=== PATIENT | female | born 1975 | race Caucasian/White ===

== ENCOUNTER 2016-09-14 06:40 | Emergency (ER) | payer BC ==
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
--- NOTE | 2016-09-14 08:41 | ED ORDER SUMMARY ---
..... Patient: DAVE MARTINES OrderSheet [facility] VisitID: [id number] [place] [address] 40y, F Registration Date/Time: 09/14/2016 ORDER SHEET Weight: 68.0 kg (stated) Allergies: No Known Drug Allergy GENERAL ORDERS: CBC w Diff Urgent (06:57 09/14/2016 Julio Cesar DRUMMOND) (Ack 7:01 AMcCarrillooid ER Tech1) (8:07 JSimbeck R.N.) CMP Urgent (06:57 09/14/2016 Julio Cesar DRUMMOND) (Ack 7:01 Matt ER TechHumberto) (8:07 YASMANIimbeck R.N.) UA-Culture if indicated Urgent (06:57 09/14/2016 Julio Cesar DRUMMOND) (Ack 7:01 Matt ER Booker) Urine Urgent (06:57 09/14/2016 Julio Cesar DRUMMOND) (Ack 7:01 Matt ER Booker) (7:11 Julio Cesar DRUMMOND) (Cancelled: Other7:11 Julio Cesar DRUMMOND) Amylase Urgent (06:57 09/14/2016 Julio Cesar DRUMMOND) (Ack 7:01 AMcCarrillooid ER Tech1) (8:07 JSimbeck R.N.) Lipase Urgent (06:57 09/14/2016 Julio Cesar DRUMMOND) (Ack 7:01 Matt ER TechHumberto) (8:07 Esthelaeck R.N.) Ethyl Alcohol Urgent (06:57 09/14/2016 Julio Cesar DRUMMOND) (Ack 7:01 Matt ER Tech1) Urine Drug Screen Urgent (06:57 09/14/2016 Julio Cesar DRUMMOND) (Ack 7:01 Racqueloid ER TechHumberto) CT Head wo Cont Urgent (07:00 09/14/2016 Julio Cesar DRUMMOND) (Ack 7:02 AMcCarrillooid ER Tech1) (8:08 JSimbeck R.N.) CT Cervical Spine wo Cont Urgent (07:01 09/14/2016 Julio Cesar DRUMMOND) (Ack 7:02 AMcQuoid ER Tech1) (8:08 JSimbeck R.N.) CT Thorax/Abd/Pelvis w Cont (No) (see report) Urgent (07:01 09/14/2016 Julio Cesar DRUMMOND) (Ack 7:02 AMcQuoid ER Tech1) (8:08 Philip Au) Serum Qualitative Urgent (07:11 09/14/2016 Julio Cesar DRUMMOND) (8:07 Philip Au) Shoulder 2V or more Left Urgent (08:14 09/14/2016 Dilma verbal order read back to Julio Cesar DRUMMOND) (Ack 8:20 Dilma) Verbal order read back and verified MEDICATION ORDERS: IV FLUIDS: IV NS : initial bolus 500 mL (1000 mL/hr), then 125 mL/hr for 4h (NOW); Urgent (06:56 09/14/2016 Julio Cesar DRUMMOND) (Ack 7:00 HSoule) (7:05 HSoule) Dilaudid IV 0.5 mg (HIGH ALERT MEDICATION, NOW) (06:56 09/14/2016 Julio Cesar DRUMMOND) (Ack 7:00 HSoule) (7:06 HSoule) Zofran IV 4 mg (NOW) (06:57 09/14/2016 Julio Cesar DRUMMOND) (Ack 7:00 HSoule) (7:06 HSoule) ORDER SHEET NOTES: [Electronically signed by Minor Rangel R.N. (09:24 09/14/2016)] [Electronically signed by Ozzie Rios MD (00:35 09/18/2016)] [Electronically locked/signed by Minor Rangel R.N. (09:24 09/14/2016)]
--- NOTE | 2016-09-14 08:41 | ED ORDER SUMMARY ---
..... Patient: DAVE MARTINES OrderSheet [facility] VisitID: [id number] [place] [address] 40y, F Registration Date/Time: 09/14/2016 ORDER SHEET Weight: 68.0 kg (stated) Allergies: No Known Drug Allergy GENERAL ORDERS: CBC w Diff Urgent (06:57 09/14/2016 Julio Cesar DRUMMOND) (Ack 7:01 AMcCarrillooid ER Tech1) (8:07 JSimbeck R.N.) CMP Urgent (06:57 09/14/2016 Julio Cesar DRUMMOND) (Ack 7:01 Matt ER TechHumberto) (8:07 YASMANIimbeck R.N.) UA-Culture if indicated Urgent (06:57 09/14/2016 Julio Cesar DRUMMOND) (Ack 7:01 Matt ER Booker) Urine Urgent (06:57 09/14/2016 Julio Cesar DRUMMOND) (Ack 7:01 Matt ER Booker) (7:11 Julio Cesar DRUMMOND) (Cancelled: Other7:11 Julio Cesar DRUMMOND) Amylase Urgent (06:57 09/14/2016 Julio Cesar DRUMMOND) (Ack 7:01 AMcCarrillooid ER Tech1) (8:07 JSimbeck R.N.) Lipase Urgent (06:57 09/14/2016 Julio Cesar DRUMMOND) (Ack 7:01 Matt ER TechHumberto) (8:07 Esthelaeck R.N.) Ethyl Alcohol Urgent (06:57 09/14/2016 Julio Cesar DRUMMOND) (Ack 7:01 Matt ER Tech1) Urine Drug Screen Urgent (06:57 09/14/2016 Julio Cesar DRUMMOND) (Ack 7:01 Racqueloid ER TechHumberto) CT Head wo Cont Urgent (07:00 09/14/2016 Julio Cesar DRUMMOND) (Ack 7:02 AMcCarrillooid ER Tech1) (8:08 JSimbeck R.N.) CT Cervical Spine wo Cont Urgent (07:01 09/14/2016 Julio Cesar DRUMMOND) (Ack 7:02 AMcQuoid ER Tech1) (8:08 JSimbeck R.N.) CT Thorax/Abd/Pelvis w Cont (No) (see report) Urgent (07:01 09/14/2016 Julio Cesar DRUMMOND) (Ack 7:02 AMcQuoid ER Tech1) (8:08 Philip Au) Serum Qualitative Urgent (07:11 09/14/2016 Julio Cesar DRUMMOND) (8:07 Philip Au) Shoulder 2V or more Left Urgent (08:14 09/14/2016 Dilma verbal order read back to Julio Cesar DRUMMOND) (Ack 8:20 Dilma) Verbal order read back and verified MEDICATION ORDERS: IV FLUIDS: IV NS : initial bolus 500 mL (1000 mL/hr), then 125 mL/hr for 4h (NOW); Urgent (06:56 09/14/2016 Julio Cesar DRUMMOND) (Ack 7:00 HSoule) (7:05 HSoule) Dilaudid IV 0.5 mg (HIGH ALERT MEDICATION, NOW) (06:56 09/14/2016 Julio Cesar DRUMMOND) (Ack 7:00 HSoule) (7:06 HSoule) Zofran IV 4 mg (NOW) (06:57 09/14/2016 Julio Cesar DRUMMOND) (Ack 7:00 HSoule) (7:06 HSoule) ORDER SHEET NOTES: [Electronically signed by Minor Rangel R.N. (09:24 09/14/2016)] [Electronically signed by Ozzie Rios MD (00:35 09/18/2016)] [Electronically locked/signed by Minor Rangel R.N. (09:24 09/14/2016)]
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
--- NOTE | 2016-09-18 00:36 | ED MAR SUMMARY ---
..... Medication Administration Record [facility] [address] [place] [address] Patient: DAVE MARTINES Visit ID: [id number] 40y, F Weight: 68.0 kg Height/Length: 60 in BMI: 29.3 ALLERGIES: No Known Drug Allergy Start 07:09/14/2016 Audra Hedrick,, Stop 09:00 09/14/2016 Minor Rangel R.N. Medication Administered: IV NS (SALINE), Dose: IV Fluids over 30 minute(s), Rate: 1000 mL/hr, Dispensed: 1000 mL bag, Site: #1 right AC. Medication Ordered: IV NS : initial bolus 500 mL (1000 mL/hr), then 125 mL/hr for 4h (NOW); Urgent. Given 07:09/14/2016 Audra Hedrick, Medication Administered: DILAUDID [IVP] (HYDROMORPHONE HCL PF), Dose: 0.5 mg IVP over 1 minute(s), Site: #1 right AC. Medication Ordered: Dilaudid IV 0.5 mg (HIGH ALERT MEDICATION, NOW). Given 07:06 09/14/2016 Audra Hedrick, Medication Administered: ZOFRAN [IVP] (ONDANSETRON HCL), Dose: 4 mg IVP over 2 minute(s), Site: #1 right AC. Medication Ordered: Zofran IV 4 mg (NOW).
--- NOTE | 2016-09-18 00:36 | ED MED RECONCILIATION SUMMARY ---
Patient: DAVE MARTINES Medication Reconciliation Report [facility] VisitID: [id number] [address] [place] [address] 40y, F Registration Date/Time: 09/14/2016 Weight: 68.0 kg Height/Length: 60 in. BMI: 29.3 ALLERGIES: No Known Drug Allergy The patient's Home Medications are listed below: THE FOLLOWING MEDICATIONS NEED TO BE RECONCILED: Synthroid Oral 100 mcg, daily The source(s) of the original Home Medication information: patient The following Medications were given to the patient in the Emergency Department: IV NS IV Fluids bolus 0, then 1000 mL/hr, administered: 09/14/2016 7:05:00 AM Dilaudid [IVP] IVP 0.5 mg, administered: 09/14/2016 7:05:00 AM Zofran [IVP] IVP 4 mg, administered: 09/14/2016 7:06:00 AM The following Medications were prescribed to the patient: Acetaminophen (available over the counter): take according to label instructions. -- Ozzie Rios MD Motrin (available over the counter): take according to label instructions. -- Ozzie Rios MD
--- NOTE | 2016-09-18 00:36 | ED MAR SUMMARY ---
..... Medication Administration Record [facility] [address] [place] [address] Patient: DAVE MARTINES Visit ID: [id number] 40y, F Weight: 68.0 kg Height/Length: 60 in BMI: 29.3 ALLERGIES: No Known Drug Allergy Start 07:09/14/2016 Audra Hedrick,, Stop 09:00 09/14/2016 Minor Rangel R.N. Medication Administered: IV NS (SALINE), Dose: IV Fluids over 30 minute(s), Rate: 1000 mL/hr, Dispensed: 1000 mL bag, Site: #1 right AC. Medication Ordered: IV NS : initial bolus 500 mL (1000 mL/hr), then 125 mL/hr for 4h (NOW); Urgent. Given 07:09/14/2016 Audra Hedrick, Medication Administered: DILAUDID [IVP] (HYDROMORPHONE HCL PF), Dose: 0.5 mg IVP over 1 minute(s), Site: #1 right AC. Medication Ordered: Dilaudid IV 0.5 mg (HIGH ALERT MEDICATION, NOW). Given 07:06 09/14/2016 Audra Hedrick, Medication Administered: ZOFRAN [IVP] (ONDANSETRON HCL), Dose: 4 mg IVP over 2 minute(s), Site: #1 right AC. Medication Ordered: Zofran IV 4 mg (NOW).
--- NOTE | 2016-09-18 00:36 | ED MED RECONCILIATION SUMMARY ---
Patient: DAVE MARTINES Medication Reconciliation Report [facility] VisitID: [id number] [address] [place] [address] 40y, F Registration Date/Time: 09/14/2016 Weight: 68.0 kg Height/Length: 60 in. BMI: 29.3 ALLERGIES: No Known Drug Allergy The patient's Home Medications are listed below: THE FOLLOWING MEDICATIONS NEED TO BE RECONCILED: Synthroid Oral 100 mcg, daily The source(s) of the original Home Medication information: patient The following Medications were given to the patient in the Emergency Department: IV NS IV Fluids bolus 0, then 1000 mL/hr, administered: 09/14/2016 7:05:00 AM Dilaudid [IVP] IVP 0.5 mg, administered: 09/14/2016 7:05:00 AM Zofran [IVP] IVP 4 mg, administered: 09/14/2016 7:06:00 AM The following Medications were prescribed to the patient: Acetaminophen (available over the counter): take according to label instructions. -- Ozzie Rios MD Motrin (available over the counter): take according to label instructions. -- Ozzie Rios MD
== END 2016-09-14 09:13 | disposition home or self-care (01) ==
LOC: ED SRH 06:40
DX: S09.90XA Unspecified injury of head, initial encounter (principal); S19.9XXA Unspecified injury of neck, initial encounter; S39.92XA Unspecified injury of lower back, initial encounter; V49.00XA Driver injured in collision with unspecified motor vehicles in nontraffic accident, initial encounter; Y93.9 Activity, unspecified; Y99.9 Unspecified external cause status; Y92.9 Unspecified place or not applicable

== ENCOUNTER 2016-10-12 12:34 | Emergency (ER) | payer BC ==
--- NOTE | 2016-10-12 14:24 | DIAGNOSTIC IMAGING REPORT ---
PROCEDURE: XR LUMBAR SPINE 2 OR 3 VIEWS INDICATION: LOWER BACK PAIN TECHNIQUE: Three views. COMPARISON: None. FINDINGS: Normal alignment without fracture. Normal disc spaces. Soft tissues are unremarkable. IMPRESSION: 1. Normal lumbar spine.
--- NOTE | 2016-10-12 14:55 | ED ORDER SUMMARY ---
..... Patient: DAVE MARTINES OrderSheet [facility] VisitID: [id number] [address] [place] [address] 40y, F Registration Date/Time: 10/12/2016 ORDER SHEET Weight: 64.4 kg (stated) Allergies: No Known Drug Allergy GENERAL ORDERS: Lumbar Spine 2 or 3V Urgent (13:33 10/12/2016 JCoates) (Ack 13:39 LTapper) (14:31 SReitz R.N.) Urine Urgent (13:34 10/12/2016 JCoates) (Ack 13:39 LTapper) (14:06 SReitz R.N.) MEDICATION ORDERS: Ketorolac IM 60 mg (NOW) (13:35 10/12/2016 JCoates) (Ack 13:35 SReitz R.N.) (13:39 SReitz R.N.) IV FLUIDS: ORDER SHEET NOTES: [Electronically signed by Ashly Canales R.N. (15:07 10/12/2016)] [Electronically signed by Rl Holliday (23:24 10/12/2016)] [Electronically locked/signed by Ashly Canales R.N. (15:07 10/12/2016)]
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
--- NOTE | 2016-10-12 14:55 | ED ORDER SUMMARY ---
..... Patient: DAVE MARTINES OrderSheet [facility] VisitID: [id number] [address] [place] [address] 40y, F Registration Date/Time: 10/12/2016 ORDER SHEET Weight: 64.4 kg (stated) Allergies: No Known Drug Allergy GENERAL ORDERS: Lumbar Spine 2 or 3V Urgent (13:33 10/12/2016 JCoates) (Ack 13:39 LTapper) (14:31 SReitz R.N.) Urine Urgent (13:34 10/12/2016 JCoates) (Ack 13:39 LTapper) (14:06 SReitz R.N.) MEDICATION ORDERS: Ketorolac IM 60 mg (NOW) (13:35 10/12/2016 JCoates) (Ack 13:35 SReitz R.N.) (13:39 SReitz R.N.) IV FLUIDS: ORDER SHEET NOTES: [Electronically signed by Ashly Canales R.N. (15:07 10/12/2016)] [Electronically signed by Rl Holliday (23:24 10/12/2016)] [Electronically locked/signed by Ashly Canales R.N. (15:07 10/12/2016)]
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
--- NOTE | 2016-10-12 23:25 | ED MAR SUMMARY ---
..... Medication Administration Record [facility] [address] [place] [address] Patient: DAVE MARTINES Visit ID: [id number] 40y, F Weight: 64.4 kg Height/Length: 50 in BMI: 39.9 ALLERGIES: No Known Drug Allergy Given 13:39 10/12/2016 Ashly Canales RMichaelNMichael Medication Administered: KETOROLAC [IM], Dose: 60 mg IM. Medication Ordered: Ketorolac IM 60 mg (NOW).
--- NOTE | 2016-10-12 23:25 | ED MED RECONCILIATION SUMMARY ---
Patient: DAVE MARTINES Medication Reconciliation Report [facility] VisitID: [id number] [address] [place] [address] 40y, F Registration Date/Time: 10/12/2016 Weight: 64.4 kg Height/Length: 50 in. BMI: 39.9 ALLERGIES: No Known Drug Allergy The patient's Home Medications are listed below: THE FOLLOWING MEDICATIONS NEED TO BE RECONCILED: Levothyroxine Sodium Oral (100 mcg) 1 tablet, daily The source(s) of the original Home Medication information: Not obtained. The following Medications were given to the patient in the Emergency Department: Ketorolac [IM] IM 60 mg, administered: 10/12/2016 1:39:00 PM The following Medications were prescribed to the patient: Motrin (available over the counter): take 3 orally every 8 hours for 5 days, as needed for pain -- Rl Holliday Flexeril 5 mg: take 1-2 orally every 8 hours as needed for muscle spasm. Dispense twenty (20). No refills. -- Rl Holliday Ultram 50 mg: take 1-2 orally every 6 hours as needed for pain. Dispense ten (10). No refills. Substitution is permissible. -- Rl Holliday
--- NOTE | 2016-10-12 23:25 | ED MED RECONCILIATION SUMMARY ---
Patient: DAVE MARTINES Medication Reconciliation Report [facility] VisitID: [id number] [address] [place] [address] 40y, F Registration Date/Time: 10/12/2016 Weight: 64.4 kg Height/Length: 50 in. BMI: 39.9 ALLERGIES: No Known Drug Allergy The patient's Home Medications are listed below: THE FOLLOWING MEDICATIONS NEED TO BE RECONCILED: Levothyroxine Sodium Oral (100 mcg) 1 tablet, daily The source(s) of the original Home Medication information: Not obtained. The following Medications were given to the patient in the Emergency Department: Ketorolac [IM] IM 60 mg, administered: 10/12/2016 1:39:00 PM The following Medications were prescribed to the patient: Motrin (available over the counter): take 3 orally every 8 hours for 5 days, as needed for pain -- Rl Holliday Flexeril 5 mg: take 1-2 orally every 8 hours as needed for muscle spasm. Dispense twenty (20). No refills. -- Rl Holliday Ultram 50 mg: take 1-2 orally every 6 hours as needed for pain. Dispense ten (10). No refills. Substitution is permissible. -- Rl Holliday
--- NOTE | 2016-10-12 23:25 | ED DISCHARGE INSTRUCTIONS ---
Patient: DAVE MARTINES General Instructions [facility] VisitID: [id number] [address] [place] [address] 40y, F Registration Date/Time: 10/12/2016 Lumbar strain. INSTRUCTIONS No driving or operating machinery while taking sedating medication. No lifting greater than 20 lbs, no bending or stooping or no prolonged sitting for- 7- days. Rest at home today. Return to work in four days. No dietary restrictions. Warnings: CONTROLLED SUBSTANCE WARNINGS. GENERAL WARNINGS: Return or contact your physician immediately if your condition worsens or changes unexpectedly, if not improving as expected, or if other problems arise. SPECIFICALLY, return if you develop incontinence of feces (loss of bowel control) or urine (loss of bladder control). Prescription Medications: Flexeril 5 mg: take 1-2 orally every 8 hours as needed for muscle spasm. Dispense twenty (20). No refills. Ultram 50 mg: take 1-2 orally every 6 hours as needed for pain. Dispense ten (10). No refills. Substitution is permissible. OTC Medications: Motrin (available over the counter): take 3 orally every 8 hours for 5 days, as needed for pain Follow-up with: [facility] [place], , [address] [place] [address] Follow up in four days. Call for the next available appointment. Summary of care provided to patient and follow-up provider. ADDITIONAL INFORMATION Back Pain [Acute Or Chronic] Back pain is usually caused by an injury to the muscles or ligaments of the spine. Sometimes the disks that separate each bone in the spine may bulge and cause pain by pressing on a nearby nerve. Back pain may also appear after a sudden twisting/bending force (such as in a car accident), after a simple awkward movement, or lifting something heavy with poor body positioning. In either case, muscle spasm is often present and adds to the pain. Acute back pain usually gets better in one to two weeks. Back pain related to disk disease, arthritis in the spinal joints or spinal stenosis (narrowing of the spinal canal) can become chronic and last for months or years. Unless you had a physical injury (for example, a car accident or fall) X-rays are usually not ordered for the initial evaluation of back pain. If pain continues and does not respond to medical treatment, x-rays and other tests may be performed at a later time. Home Care: You may need to stay in bed the first few days. But, as soon as possible, begin sitting or walking to avoid problems with prolonged bed rest (muscle weakness, worsening back stiffness and pain, blood clots in the legs). When in bed, try to find a position of comfort. A firm mattress is best. Try lying flat on your back with pillows under your knees. You can also try lying on your side with your knees bent up towards your chest and a pillow between your knees. Avoid prolonged sitting. This puts more stress on the lower back than standing or walking. During the first two days after injury, apply an ICE PACK to the painful area for 20 minutes every 2-4 hours. This will reduce swelling and pain. HEAT (hot shower, hot bath or heating pad) works well for muscle spasm. You can start with ice, then switch to heat after two days. Some patients feel best alternating ice and heat treatments. Use the one method that feels the best to you. You may use acetaminophen (Tylenol) or ibuprofen (Motrin, Advil) to control pain, unless another pain medicine was prescribed. [NOTE: If you have chronic liver or kidney disease or ever had a stomach ulcer or GI bleeding, talk with your doctor before using these medicines.] Be aware of safe lifting methods and do not lift anything over 15 pounds until all the pain is gone. Follow Up with your doctor or this facility if your symptoms do not start to improve after one week. Physical therapy may be needed. [NOTE: If X-rays were taken, they will be reviewed by a radiologist. You will be notified of any new findings that may affect your care.] Get Prompt Medical Attention if any of the following occur: Pain becomes worse or spreads to your legs Weakness or numbness in one or both legs Loss of bowel or bladder control Numbness in the groin or genital area Cyclobenzaprine Hydrochloride Oral tablet What is this medicine? CYCLOBENZAPRINE (sye kloe WINDY jayant preen) is a muscle relaxer. It is used to treat muscle pain, spasms, and stiffness. How should I use this medicine? Take this medicine by mouth with a glass of water. Follow the directions on the prescription label. If this medicine upsets your stomach, take it with food or milk. Take your medicine at regular intervals. Do not take it more often than directed. Talk to your roof service technician regarding the use of this medicine in children. Special care may be needed. What side effects may I notice from receiving this medicine? Side effects that you should report to your doctor or health patient care specialist as soon as possible: allergic reactions like skin rash, itching or hives, swelling of the face, lips, or tongue chest pain fast heartbeat hallucinations seizures vomiting Side effects that usually do not require medical attention (report to your doctor or health patient care specialist if they continue or are bothersome): headache What may interact with this medicine? Do not take this medicine with any of the following medications: cisapride droperidol flecainide grepafloxacin halofantrine levomethadyl MAOIs like Carbex, Eldepryl, Marplan, Nardil, and Parnate nilotinib pimozide probucol sertindole This medicine may also interact with the following medications: abarelix alcohol contrast dyes dolasetron guanethidine medicines for cancer medicines for depression, anxiety, or psychotic disturbances medicines to treat an irregular heartbeat medicines used for sleep or numbness during surgery or procedure methadone octreotide ondansetron palonosetron phenothiazines like chlorpromazine, mesoridazine, prochlorperazine, thioridazine some medicines for infection like alfuzosin, chloroquine, clarithromycin, levofloxacin, mefloquine, pentamidine, troleandomycin tramadol vardenafil What if I miss a dose? If you miss a dose, take it as soon as you can. If it is almost time for your next dose, take only that dose. Do not take double or extra doses. Where should I keep my medicine? Keep out of the reach of children. Store at room temperature between 15 and 30 degrees C (59 and 86 degrees F). Keep container tightly closed. Throw away any unused medicine after the expiration date. What should I tell my health care provider before I take this medicine? They need to know if you have any of these conditions: heart disease, irregular heartbeat, or previous heart attack liver disease thyroid problem an unusual or allergic reaction to cyclobenzaprine, tricyclic antidepressants, lactose, other medicines, foods, dyes, or preservatives or trying to get breast-feeding What should I watch for while using this medicine? Check with your doctor or health patient care specialist if your condition does not improve within 1 to 3 weeks. You may get drowsy or dizzy when you first start taking the medicine or change doses. Do not drive, use machinery, or do anything that may be dangerous until you know how the medicine affects you. Stand or sit up slowly. Your mouth may get dry. Drinking water, chewing sugarless gum, or sucking on hard candy may help. Ibuprofen Oral tablet What is this medicine? IBUPROFEN (eye BYOO proe fen) is a non-steroidal anti-inflammatory drug (NSAID). It is used for dental pain, fever, headaches or migraines, osteoarthritis, rheumatoid arthritis, or painful monthly periods. It can also relieve minor aches and pains caused by a cold, flu, or sore throat. How should I use this medicine? Take this medicine by mouth with a glass of water. Follow the directions on the prescription label. Take this medicine with food if your stomach gets upset. Try to not lie down for at least 10 minutes after you take the medicine. Take your medicine at regular intervals. Do not take your medicine more often than directed. A special MedGuide will be given to you by the pharmacist with each prescription and refill. Be sure to read this information carefully each time. Talk to your roof service technician regarding the use of this medicine in children. Special care may be needed. What side effects may I notice from receiving this medicine? Side effects that you should report to your doctor or health patient care specialist as soon as possible: allergic reactions like skin rash, itching or hives, swelling of the face, lips, or tongue black or bloody stools, blood in the urine or in vomit breathing problems changes in vision chest pain general ill feeling or flu-like symptoms nausea or vomiting redness, blistering, peeling or loosening of the skin, including inside the mouth slurred speech or weakness on one side of the body stomach pain unexplained weight gain or swelling unusually weak or tired yellowing of eyes or skin Side effects that usually do not require medical attention (report to your doctor or health patient care specialist if they continue or are bothersome): constipation or diarrhea dizziness gas or heartburn stomach upset What may interact with this medicine? Do not take this medicine with any of the following medications: cidofovir ketorolac methotrexate pemetrexed This medicine may also interact with the following medications: alcohol aspirin diuretics lithium other drugs for inflammation like prednisone warfarin What if I miss a dose? If you miss a dose, take it as soon as you can. If it is almost time for your next dose, take only that dose. Do not take double or extra doses. Where should I keep my medicine? Keep out of the reach of children. Store at room temperature between 15 and 30 degrees C (59 and 86 degrees F). Keep container tightly closed. Throw away any unused medicine after the expiration date. What should I tell my health care provider before I take this medicine? They need to know if you have any of these conditions: asthma cigarette smoker drink more than 3 alcohol containing drinks a day heart disease or circulation problems such as heart failure or leg edema (fluid retention) high blood pressure kidney disease liver disease stomach bleeding or ulcers an unusual or allergic reaction to ibuprofen, aspirin, other NSAIDS, other medicines, foods, dyes, or preservatives or trying to get breast-feeding What should I watch for while using this medicine? Tell your doctor or healthcare professional if your symptoms do not start to get better or if they get worse. This medicine does not prevent heart attack or stroke. In fact, this medicine may increase the chance of a heart attack or stroke. The chance may increase with longer use of this medicine and in people who have heart disease. If you take aspirin to prevent heart attack or stroke, talk with your doctor or health patient care specialist. Do not take other medicines that contain aspirin, ibuprofen, or naproxen with this medicine. Side effects such as stomach upset, nausea, or ulcers may be more likely to occur. Many medicines available without a prescription should not be taken with this medicine. This medicine can cause ulcers and bleeding in the stomach and intestines at any time during treatment. Ulcers and bleeding can happen without warning symptoms and can cause . To reduce your risk, do not smoke cigarettes or drink alcohol while you are taking this medicine. You may get drowsy or dizzy. Do not drive, use machinery, or do anything that needs mental alertness until you know how this medicine affects you. Do not stand or sit up quickly, especially if you are an older patient. This reduces the risk of dizzy or fainting spells. This medicine can cause you to bleed more easily. Try to avoid damage to your teeth and gums when you brush or floss your teeth. You have been given the following additional information: Back Pain (Acute Or Chronic) Cyclobenzaprine Hydrochloride Oral tablet Ibuprofen Oral tablet No driving or operating machinery while taking sedating medication. No lifting greater than 20 lbs, no bending or stooping or no prolonged sitting for- 7- days. Rest at home today. Return to work in four days. (Electronically signed by Rl Holliday, 10/12/2016 23:24)
--- NOTE | 2016-10-12 23:25 | ED MAR SUMMARY ---
..... Medication Administration Record [facility] [address] [place] [address] Patient: DAVE MARTINES Visit ID: [id number] 40y, F Weight: 64.4 kg Height/Length: 50 in BMI: 39.9 ALLERGIES: No Known Drug Allergy Given 13:39 10/12/2016 Ashly Canales RMichaelNMichael Medication Administered: KETOROLAC [IM], Dose: 60 mg IM. Medication Ordered: Ketorolac IM 60 mg (NOW).
== END 2016-10-12 15:07 | disposition home or self-care (01) ==
LOC: ED SRH 12:34
DX: S39.012A Strain of muscle, fascia and tendon of lower back, initial encounter (principal); X58.XXXA Exposure to other specified factors, initial encounter; Y93.9 Activity, unspecified; Y92.9 Unspecified place or not applicable; Y99.9 Unspecified external cause status; K21.9 Gastro-esophageal reflux disease without esophagitis; E03.9 Hypothyroidism, unspecified; Z79.899 Other long term (current) drug therapy